=== PATIENT | male | born 1965 | race Caucasian/White ===

== ENCOUNTER 2016-05-29 13:45 | Inpatient (IN) | payer OTHER ==
[2016-05-29 17:09] VITALS: BMI 31.5
--- NOTE | 2016-05-29 17:09 | HP ---
COWS - Scale Resting Pulse: 0= [place] 80 or Below Sweatin= Chills/Flushing Restless Observation: 1= Difficult to Sit Still Pupil Size: 1= Pupils >than Normal Bone or Joint Aches: 2= Severe Diffuse Aches Runny Nose/ Eye Tearin= Runny Nose/Eyes GI Upset > 30mins: 3= Vomiting/Diarrhea Tremor Observation: 2= Slight Tremor Visible Yawning Observation: 1= 1-2x During Session Anxiety or Irritability: 2=Irritable/Anxious Goose Flesh Skin: 0=Smooth Skin COWS Score: 15 Admission ROS S - [facility] Chief Complaint: withdrawal sx Allergies/Adverse Reactions: Allergies Allergy/AdvReac Type Severity Reaction Status Date / Time No Known Allergies Allergy Unverified 05/29/16 18:02 History of Present Illness: 51 years old male with long history of opiate nicotine cocaine dependence has hypertension and depression is admitted to detox Exam Limitations: No Limitations - Ebola screening Have you traveled outside of the country in the last 21 days: No Have you had contact with anyone from an Ebola affected area: No Have you been sick,other than usual withdrawal symptoms: No Do you have a fever: No - Review of Systems Constitutional: Changes in sleep, Weight Stable EENT: reports: No Symptoms Reported Respiratory: reports: No Symptoms reported Cardiac: reports: No Symptoms Reported GI: reports: Diarrhea, Nausea, Poor Fluid Intake, Abdominal cramping : reports: No Symptoms Reported Musculoskeletal: reports: Back Pain, Joint Pain, Muscle Pain, Neck Pain Integumentary: reports: Change in Color (both inner elbows) Neuro: reports: Tremors Endocrine: reports: No Symptoms Reported Hematology: reports: No Symptoms Reported Psychiatric: reports: Judgement Intact, Orientated x3, Depressed Other Systems: Reviewed and Negative Patient History - Patient Medical History Hx Anemia: No Hx Asthma: No Hx Chronic Obstructive Pulmonary Disease (COPD): No Hx Cancer: No Hx Cardiac Disorders: No Hx Congestive Heart Failure: No Hx Hypertension: No Hx Hypercholesterolemia: No Hx Pacemaker: No HX Cerebrovascular Accident: No Hx Seizures: No Hx Dementia: No Hx Diabetes: No Hx Gastrointestinal Disorders: No Hx Liver Disease: No Hx Genitourinary Disorders: No Hx Sexually Transmitted Disorders: No Hx Renal Disease (ESRD): No Hx Thyroid Disease: No Hx Human Immunodeficiency Virus (HIV): No Hx Hepatitis C: Yes Hx Depression: Yes Hx Suicide Attempt: No Hx Bipolar Disorder: No Hx Schizophrenia: No - Patient Surgical History Past Surgical History: Yes Hx Neurologic Surgery: No Hx Cataract Extraction: No Hx Cardiac Surgery: Yes (2005 triple by pass) Hx Lung Surgery: No Hx Breast Surgery: No Hx Breast Biopsy: No Hx Abdominal Surgery: No Hx Appendectomy: No Hx Cholecystectomy: No Hx Genitourinary Surgery: No Hx Orthopedic Surgery: No Anesthesia Reaction: No - PPD History Previous Implant?: Yes Documented Results: Negative w/o proof Implanted On Prior [facility] Admission?: No PPD to be Administered?: Yes - Smoking Cessation Smoking history: Current every day smoker Have you smoked in the past 12 months: Yes Aproximately how many cigarettes per day: 30 Cigars Per Day: 0 Hx Chewing Tobacco Use: No Initiated information on smoking cessation: Yes 'Breaking Loose' booklet given: 05/29/16 - Substance & Tx. History Hx Alcohol Use: No Hx Substance Use: Yes Substance Use Type: Cocaine, Opiates Hx Substance Use Treatment: Yes - Substances Abused Heroin Route: Injection Frequency: Daily Amount used: 10 bags Age of first use: 50 Date of Last Use: 05/29/16 Cocaine Route: Smoking Frequency: Daily Amount used: $50.00 Age of first use: 50 Date of Last Use: 05/29/16 Family Disease History - Family Disease History Family Disease History: Diabetes: Grandparent, Heart Disease: Grandparent, Father () Admission Physical Exam [facility] - Physical General Appearance: Yes: Nourished, Appropriately Dressed, Moderate Distress, Tremorous, Irritable, Sweating, Anxious HEENTM: Yes: Hearing grossly Normal, Normal ENT Inspection, Normocephalic, Normal Voice Respiratory: Yes: Chest Non-Tender, Lungs Clear, Normal Breath Sounds, No Respiratory Distress, No Accessory Muscle Use Neck: Yes: Supple, Trachea in good position Breast: Yes: Breasts Symetrical Cardiology: Yes: Regular Rhythm, Regular Rate, S1, S2 Abdominal: Yes: Non Tender, Soft Genitourinary: Yes: Within Normal Limits Back: Yes: Normal Inspection Musculoskeletal: Yes: full range of Motion, Gait Steady Extremities: Yes: Normal Range of Motion, Non-Tender, Tremors Neurological: Yes: Fully Oriented, Alert, Motor Strength 5/5, Normal Response, Depressed Affect Integumentary: Yes: Warm, Track [place] Lymphatic: Yes: Within Normal Limits - Diagnostic (1) Opioid dependence with withdrawal Current Visit: Yes Status: Acute (2) Hypertension Current Visit: Yes Status: Acute Qualifiers: Hypertension type: essential hypertension Qualified Code(s): I10 - Essential (primary) hypertension (3) Diabetes mellitus type II, controlled Current Visit: Yes Status: Acute Qualifiers: Diabetes mellitus complication status: without complication Diabetes mellitus nursing home insulin use: without superintendent marine oil terminal use Qualified Code(s): E11.9 - Type 2 diabetes mellitus without complications (4) Nicotine dependence Current Visit: Yes Status: Acute Qualifiers: Nicotine product type: cigarettes Substance use status: in withdrawal Qualified Code(s): F17.213 - Nicotine dependence, cigarettes, with withdrawal (5) Hepatitis C antibody test positive Current Visit: Yes Status: Resolved Comment: treated (6) Depression (emotion) Current Visit: Yes Status: Suspected Qualifiers: Depression Type: dysthymia Qualified Code(s): F34.1 - Dysthymic disorder (7) Status post cardiac revascularization with bypass aortocoronary anastomosis of five coronary vessels Current Visit: Yes Status: Resolved Cleared for Admission BHS - Detox or Rehab S Level of Care: Medically Managed Detox Regimen/Protocol: Methadone BHS Breath Alcohol Content Breath Alcohol Content: 0 Vital Signs - Vital Signs Vital Signs Refused: No Temperature: 97.5 F Temperature Source: Oral Pulse Rate: 68 Respiratory Rate: 18 Blood Pressure: 138/75 BP Location: Left Arm Blood Pressure Position: Sitting - Height Height: 5 ft 10 in - Weight Weight: 220 lb Weight Measurement Method: Standing Scale Body Mass Index (BMI): 31.5 - Bowel Function Bowel Movement: Yes Urine Drug Screen - Control Is Test Valid: Yes - Results Drug Screen Negative: No Urine Drug Screen Results: CHIDI-Cocaine, OPI-Opiates
[2016-05-29] MEDS ORDERED: MAGNESIUM CITRATE 300 ML BOTTLE PO PRN (18:58)
[2016-05-29] MEDS ORDERED: LOPERAMIDE HCL 2 MG CAPSULE PO PRN (18:58)
[2016-05-29] MEDS ORDERED: NICOTINE POLACRILEX 4 MG GUM BC PRN (18:58)
[2016-05-29] MEDS ORDERED: MAG HYDROX/AL HYDROX/SIMETH 30 ML UNIT-DOSE CUP PO PRN (18:58)
[2016-05-29] MEDS ORDERED: MENTHOL/PHENOL 1 EACH UD MM PRN (18:58)
[2016-05-29] MEDS ORDERED: METHADONE HCL 10 MG TABLET (FOR DETOX USE ONLY) PO ONE ×2 (18:58→23:00)
[2016-05-29] MEDS ORDERED: MAGNESIUM HYDROX 2400MG/30ML ORAL SUSPENSION 30 ML CUP PO PRN (18:58)
[2016-05-29] MEDS ORDERED: IBUPROFEN 400 MG TABLET (FP) PO PRN (18:58)
[2016-05-29] MEDS ORDERED: P-EPHED 60MG/TRIPROLIDI 2.5MG TABLET PO PRN (18:58)
[2016-05-29] MEDS ORDERED: diphenhydrAMINE HCL 50 MG CAPSULE PO PRN (18:58)
[2016-05-29] MEDS ORDERED: ACETAMINOPHEN 325 MG TABLET (FP) PO PRN (18:58)
[2016-05-29] MEDS ORDERED: cloNIDine HCL 0.1 MG TABLET PO PRN (19:04)
[2016-05-29] MEDS: diazePAM 5 MG TABLET PO PRN (20:21)
[2016-05-29] MEDS: THIAMINE HCL 100 MG TABLET (FP) PO SCH (22:46)
[2016-05-29] MEDS: CYCLOBENZAPRINE HCL 10 MG TABLET (FP) PO PRN (22:49)
[2016-05-30] MEDS: diazePAM 5 MG TABLET PO PRN ×2 (05:42→22:14)
[2016-05-30] MEDS: metFORMIN HCL 500 MG TABLET (FP) PO SCH ×2 (07:18→17:29)
[2016-05-30] MEDS ORDERED: METHADONE HCL 10 MG TABLET (FOR DETOX USE ONLY) PO ONE (10:00)
[2016-05-30] MEDS: NICOTINE 21 MG/24 HOURS TOPICAL PATCH TD SCH (10:12)
[2016-05-30] MEDS: LISINOPRIL 20 MG TABLET (FP) PO SCH (10:12)
[2016-05-30] MEDS: HYDROCHLOROTHIAZIDE 25 MG TABLET (FP) PO SCH (10:12)
[2016-05-30] MEDS: PRENATAL VITAMINS W/ FOLIC ACID TABLET (FP) PO SCH (10:12)
[2016-05-30 11:30] LABS: MCH 28.8 pg (25.7-33.7); MCHC 33.7 g/dl (32.0-35.9); MEAN CELL VOLUME 85.4 fl (80-96); MEAN PLT VOLUME 7.6 fl (7.5-11.1); PLATELET COUNT 103 K/MM3 (134-434); RDW 14.5 % (11.9-15.9); WHITE BLOOD COUNT 3.8 K/mm3 (4.0-10.0)
[2016-05-30 11:39] LABS: ALBUMIN 3.5 g/dl (3.4-5.0); ALK PHOS 79 U/L (45-117); ANION GAP 9 (8-16); BILIRUBIN,TOTAL 0.6 mg/dL (0.2-1.0); CALCIUM 8.8 mg/dL (8.5-10.1); CO2 28 mmol/L (21-32); CREATININE 0.8 mg/dL (0.7-1.3); GLUCOSE,RANDOM 124 mg/dL (74-106); SGOT/AST 15 U/L (15-37); SGPT/ALT 20 U/L (12-78); TOT PROT 7.6 g/dl (6.4-8.2)
--- NOTE | 2016-05-30 11:56 | PN ---
BHS COWS - Scale Resting Pulse: 1= [place] 81-100 Sweatin=Flushed/Facial Moisture Restless Observation: 1= Difficult to Sit Still Pupil Size: 0= Normal to Room Light Bone or Joint Aches: 2= Severe Diffuse Aches Runny Nose/ Eye Tearin= Runny Nose/Eyes GI Upset > 30mins: 2= Nausea/Diarrhea Tremor Observation of Outstretched Hands: 2= Slight Tremor Visible Yawning Observation: 1= 1-2x During Session Anxiety or Irritability: 2=Irritable/Anxious Goose Flesh Skin: 0=Smooth Skin COWS Score: 15 BHS Progress Note (SOAP) Subjective: Anxiety,sweating,interrupted sleep,restless,body aches Objective: 05/30/16 11:55 Last Vital Signs Temp Pulse Resp BP Pulse Ox 97 F L 86 20 128/78 05/30/16 10:31 05/30/16 10:31 05/30/16 10:31 05/30/16 10:31 Laboratory Tests 05/29/16 05/30/16 05/30/16 18:04 05:41 08:00 WBC 3.8 L RBC 5.01 Hgb 14.4 Hct 42.8 MCV 85.4 MCHC 33.7 RDW 14.5 Plt Count 103 L MPV 7.6 Sodium Potassium Chloride Carbon Dioxide Anion Gap BUN Creatinine Creat Clearance w eGFR POC Glucometer 190 141 Random Glucose Calcium Total Bilirubin AST ALT Alkaline Phosphatase Total Protein Albumin 05/30/16 08:00 WBC RBC Hgb Hct MCV MCHC RDW Plt Count MPV Sodium 140 Potassium 4.1 Chloride 103 Carbon Dioxide 28 Anion Gap 9 BUN 9 Creatinine 0.8 Creat Clearance w eGFR > 60 POC Glucometer Random Glucose 124 H Calcium 8.8 Total Bilirubin 0.6 AST 15 ALT 20 Alkaline Phosphatase 79 Total Protein 7.6 Albumin 3.5 labs noted Assessment: 05/30/16 11:55 Withdrawal sx. Plan: Continue detox
--- NOTE | 2016-05-30 11:58 | CONSULT ---
[facility] Psychiatric Consult - Data Date of interview: 05/30/16 Admission source: [facility] Identifying data: Readmission to [facility] for this 51 y/o male seeking detox treatment [address] for opioid and cocaine dependence.Patient is single without children,domiciled and self-employed. Substance Abuse History: - Smoking Cessation. Smoking history: Current every day smoker. Have you smoked in the past 12 months: Yes. Aproximately how many cigarettes per day: 30. Cigars Per Day: 0. Hx Chewing Tobacco Use: No. Initiated information on smoking cessation: Yes. 'Breaking Loose' booklet given : 05/29/16. - Substance & Tx. History. Hx Alcohol Use: No. Hx Substance Use: Yes. Substance Use Type: Cocaine, Opiates. Hx Substance Use Treatment: Yes. - Substances Abused. Heroin. Route: Injection. Frequency: Daily. Amount used: 10 bags. Age of first use: 50. Date of Last Use: 05/29/16. Cocaine. Route: Smoking. Frequency: Daily. Amount used: $50.00. Age of first use: 50. Date of Last Use: 05/29/16. Confirmed by patient in this interview. Medical History: Hepatitis C and a history of triple bypass in 2005. Psychiatric History: Patient denies. Physical/Sexual Abuse/Trauma History: Patient denies. Additional Comment: Urine Drug Screen Results: CHIDI-Cocaine, OPI-Opiates.Noted. Mental Status Exam - Mental Status Exam Alert and Oriented to: Time, Place, Person Cognitive Function: Good Patient Appearance: Well Groomed Mood: Hopeful, Euthymic Affect: Normal Range Patient Behavior: Appropriate, Cooperative Speech Pattern: Clear Voice Loudness: Normal Thought Process: Goal Oriented Thought Disorder: Not Present Hallucinations: Denies Suicidal Ideation: Denies Homicidal Ideation: Denies Insight/Judgement: Fair Sleep: Poorly, Difficulty falling asleep Appetite: Good Muscle strength/Tone: Normal Gait/Station: Normal Psychiatric Findings - Problem List ([place] 1, 2,3) (1) Nicotine dependence Current Visit: Yes Status: Acute Qualifiers: Nicotine product type: cigarettes Substance use status: in withdrawal Qualified Code(s): F17.213 - Nicotine dependence, cigarettes, with withdrawal (2) Opioid dependence with withdrawal Current Visit: Yes Status: Acute (3) Cocaine dependence Current Visit: Yes Status: Acute (4) Diabetes mellitus type II, controlled Current Visit: Yes Status: Chronic Qualifiers: Diabetes mellitus complication status: without complication Diabetes mellitus terminal superintendent insulin use: without intermediate use Qualified Code(s): E11.9 - Type 2 diabetes mellitus without complications (5) Hypertension Current Visit: Yes Status: Chronic Qualifiers: Hypertension type: essential hypertension Qualified Code(s): I10 - Essential (primary) hypertension (6) Hepatitis C antibody test positive Current Visit: Yes Status: Resolved Comment: treated (7) Status post cardiac revascularization with bypass aortocoronary anastomosis of five coronary vessels Current Visit: Yes Status: Resolved - Initial Treatment Plan Initial Treatment Plan: Psychoeducation.Detoxification.Zolpidem 10 mg po hs prn.Patient made aware of parasomnias.He agrees with this plan.Observation.
[2016-05-30] MEDS: CYCLOBENZAPRINE HCL 10 MG TABLET (FP) PO PRN (17:30)
[2016-05-30] MEDS: THIAMINE HCL 100 MG TABLET (FP) PO SCH (22:12)
[2016-05-30] MEDS: ZOLPIDEM TARTRATE 5 MG TABLET PO PRN (22:12)
[2016-05-31 00:17] LABS: URINE APPEARANCE CLEAR; URINE BILIRUBIN NEGATIVE (NEGATIVE); URINE BLOOD NEGATIVE (NEGATIVE); URINE COLOR LTYELLOW; URINE GLUCOSE (UA) NEGATIVE (NEGATIVE); URINE KETONE NEGATIVE (NEGATIVE); URINE LEUK ESTERASE NEGATIVE (NEGATIVE); URINE NITRITE NEGATIVE (NEGATIVE); URINE PROTEIN NEGATIVE (NEGATIVE); URINE UROBILINOGEN 2.0 E.U/dl E.U./dl (0.2-1.0)
[2016-05-31] MEDS: diazePAM 5 MG TABLET PO PRN ×3 (05:25→22:33)
[2016-05-31] MEDS: metFORMIN HCL 500 MG TABLET (FP) PO SCH ×2 (06:04→17:30)
[2016-05-31] MEDS ORDERED: METHADONE HCL 5 MG TABLET (FOR DETOX USE ONLY) PO ONE (10:00)
[2016-05-31] MEDS: PRENATAL VITAMINS W/ FOLIC ACID TABLET (FP) PO SCH (10:08)
[2016-05-31] MEDS: LISINOPRIL 20 MG TABLET (FP) PO SCH (10:08)
[2016-05-31] MEDS: NICOTINE 21 MG/24 HOURS TOPICAL PATCH TD SCH (10:09)
[2016-05-31] MEDS: HYDROCHLOROTHIAZIDE 25 MG TABLET (FP) PO SCH (10:09)
--- NOTE | 2016-05-31 14:17 | PN ---
BHS COWS - Scale Resting Pulse: 0= [place] 80 or Below Sweatin= Chills/Flushing Restless Observation: 3= Extraneous Movement Pupil Size: 0= Normal to Room Light Bone or Joint Aches: 2= Severe Diffuse Aches Runny Nose/ Eye Tearin= Runny Nose/Eyes GI Upset > 30mins: 3= Vomiting/Diarrhea Tremor Observation of Outstretched Hands: 2= Slight Tremor Visible Yawning Observation: 0= None Anxiety or Irritability: 2=Irritable/Anxious Goose Flesh Skin: 0=Smooth Skin COWS Score: 15 BHS Progress Note (SOAP) Subjective: Dry heaves, stomach pain, body aches, diarrhea, sweating, tremor, interrupted sleep Objective: 05/31/16 14:15 Last Vital Signs Temp Pulse Resp BP Pulse Ox 97 F L 80 18 126/77 05/31/16 13:37 05/31/16 13:37 05/31/16 13:37 05/31/16 13:37 Laboratory Tests 05/29/16 05/30/16 05/30/16 18:04 05:41 08:00 WBC 3.8 L RBC 5.01 Hgb 14.4 Hct 42.8 MCV 85.4 MCHC 33.7 RDW 14.5 Plt Count 103 L MPV 7.6 Sodium Potassium Chloride Carbon Dioxide Anion Gap BUN Creatinine Creat Clearance w eGFR POC Glucometer 190 141 Random Glucose Calcium Total Bilirubin AST ALT Alkaline Phosphatase Total Protein Albumin Urine Color Urine Appearance Urine pH Ur Specific [place] Urine Protein Urine Glucose (UA) Urine Ketones Urine Blood Urine Nitrite Urine Bilirubin Urine Urobilinogen Ur Leukocyte Esterase RPR Titer 05/30/16 05/30/16 05/30/16 08:00 08:00 16:16 WBC RBC Hgb Hct MCV MCHC RDW Plt Count MPV Sodium 140 Potassium 4.1 Chloride 103 Carbon Dioxide 28 Anion Gap 9 BUN 9 Creatinine 0.8 Creat Clearance w eGFR > 60 POC Glucometer 156 Random Glucose 124 H Calcium 8.8 Total Bilirubin 0.6 AST 15 ALT 20 Alkaline Phosphatase 79 Total Protein 7.6 Albumin 3.5 Urine Color Urine Appearance Urine pH Ur Specific [place] Urine Protein Urine Glucose (UA) Urine Ketones Urine Blood Urine Nitrite Urine Bilirubin Urine Urobilinogen Ur Leukocyte Esterase RPR Titer Nonreactive 03/04/17 03/05/17 23:03 05:24 WBC RBC Hgb Hct MCV MCHC RDW Plt Count MPV Sodium Potassium Chloride Carbon Dioxide Anion Gap BUN Creatinine Creat Clearance w eGFR POC Glucometer 127 Random Glucose Calcium Total Bilirubin AST ALT Alkaline Phosphatase Total Protein Albumin Urine Color Ltyellow Urine Appearance Clear Urine pH 7.0 Ur Specific [place] 1.011 Urine Protein Negative Urine Glucose (UA) Negative Urine Ketones Negative Urine Blood Negative Urine Nitrite Negative Urine Bilirubin Negative Urine Urobilinogen 2.0 e.u/dl Ur Leukocyte Esterase Negative RPR Titer Labs noted Assessment: 05/31/16 14:16 Withdrawal symptoms Plan: Continue detox
[2016-05-31] MEDS: CYCLOBENZAPRINE HCL 10 MG TABLET (FP) PO PRN (20:07)
[2016-05-31] MEDS: ZOLPIDEM TARTRATE 5 MG TABLET PO PRN (22:33)
[2016-05-31] MEDS: THIAMINE HCL 100 MG TABLET (FP) PO SCH (22:33)
--- NOTE | 2016-05-31 22:52 | EKG ---
Test Reason : Blood Pressure : / mmHG Vent. Rate : 068 BPM Atrial Rate : 068 BPM P-R Int : 174 ms QRS Dur : 098 ms QT Int : 422 ms P-R-T Axes : 012 043 025 degrees QTc Int : 448 ms NORMAL SINUS RHYTHM NONSPECIFIC T WAVE ABNORMALITY INFEROLATERAL LEADS CANNOT RULE OUT INFERIOR INFARCT , AGE UNDETERMINED ABNORMAL ECG NO PREVIOUS ECGS AVAILABLE Confirmed by AMARJIT CALERO MD ([id number]) on 05/31/2016 10:52:24 PM Referred By: Theron Rogers Confirmed By:AMARJIT CALERO MD
[2016-06-01] MEDS: diazePAM 5 MG TABLET PO PRN ×3 (06:21→17:22)
[2016-06-01] MEDS: guaiFENesin/D-METHORPHAN HB 10 ML UNIT-DOSE CUPS PO PRN (06:22)
[2016-06-01] MEDS: metFORMIN HCL 500 MG TABLET (FP) PO SCH ×2 (06:33→17:20)
[2016-06-01] MEDS ORDERED: METHADONE HCL 5 MG TABLET (FOR DETOX USE ONLY) PO ONE (10:00)
[2016-06-01] MEDS: PRENATAL VITAMINS W/ FOLIC ACID TABLET (FP) PO SCH (10:08)
[2016-06-01] MEDS: NICOTINE 21 MG/24 HOURS TOPICAL PATCH TD SCH (10:08)
[2016-06-01] MEDS: LISINOPRIL 20 MG TABLET (FP) PO SCH (10:08)
[2016-06-01] MEDS: HYDROCHLOROTHIAZIDE 25 MG TABLET (FP) PO SCH (10:08)
--- NOTE | 2016-06-01 12:47 | PN ---
BHS Progress Note (SOAP) Subjective: Sweating,interrupted sleep,restless Objective: 06/01/16 12:46 Vital Signs - 8 hr 06/01/16 06/01/16 06:40 09:22 Temperature 95.9 F L 96.9 F L Pulse Rate 75 84 Respiratory 16 18 Rate Blood Pressure 117/68 126/86 Laboratory Last Values WBC 3.8 K/mm3 (4.0-10.0) L 05/30/16 08:00 RBC 5.01 M/mm3 (4.00-5.60) 05/30/16 08:00 Hgb 14.4 GM/dL (11.7-16.9) 05/30/16 08:00 Hct 42.8 % (35.4-49) 05/30/16 08:00 MCV 85.4 fl (80-96) 05/30/16 08:00 MCHC 33.7 g/dl (32.0-35.9) 05/30/16 08:00 RDW 14.5 % (11.9-15.9) 05/30/16 08:00 Plt Count 103 K/MM3 (134-434) L 05/30/16 08:00 MPV 7.6 fl (7.5-11.1) 05/30/16 08:00 Sodium 140 mmol/L (136-145) 05/30/16 08:00 Potassium 4.1 mmol/L (3.5-5.1) 05/30/16 08:00 Chloride 103 mmol/L (98-107) 05/30/16 08:00 Carbon Dioxide 28 mmol/L (21-32) 05/30/16 08:00 Anion Gap 9 (8-16) 05/30/16 08:00 BUN 9 mg/dL (7-18) 05/30/16 08:00 Creatinine 0.8 mg/dL (0.7-1.3) 05/30/16 08:00 Creat Clearance w eGFR > 60 (>60) 05/30/16 08:00 POC Glucometer 206 UNITS (()) 06/01/16 06:20 Random Glucose 124 mg/dL (74-106) H 05/30/16 08:00 Calcium 8.8 mg/dL (8.5-10.1) 05/30/16 08:00 Total Bilirubin 0.6 mg/dL (0.2-1.0) 05/30/16 08:00 AST 15 U/L (15-37) 05/30/16 08:00 ALT 20 U/L (12-78) 05/30/16 08:00 Alkaline Phosphatase 79 U/L (45-117) 05/30/16 08:00 Total Protein 7.6 g/dl (6.4-8.2) 05/30/16 08:00 Albumin 3.5 g/dl (3.4-5.0) 05/30/16 08:00 Urine Color Ltyellow 05/30/16 23:03 Urine Appearance Clear 05/30/16 23:03 Urine pH 7.0 (5.0-8.0) 05/30/16 23:03 Ur Specific [place] 1.011 (1.001-1.035) 05/30/16 23:03 Urine Protein Negative (NEGATIVE) 05/30/16 23:03 Urine Glucose (UA) Negative (NEGATIVE) 05/30/16 23:03 Urine Ketones Negative (NEGATIVE) 05/30/16 23:03 Urine Blood Negative (NEGATIVE) 05/30/16 23:03 Urine Nitrite Negative (NEGATIVE) 05/30/16 23:03 Urine Bilirubin Negative (NEGATIVE) 05/30/16 23:03 Urine Urobilinogen 2.0 e.u/dl E.U./dl (0.2-1.0) 05/30/16 23:03 Ur Leukocyte Esterase Negative (NEGATIVE) 05/30/16 23:03 RPR Titer Nonreactive (NONREACTIVE) 05/30/16 08:00 labs noted Assessment: 06/01/16 12:46 Withdrawal sx. Plan: Continue detox
[2016-06-01] MEDS: THIAMINE HCL 100 MG TABLET (FP) PO SCH (22:11)
[2016-06-01] MEDS: ZOLPIDEM TARTRATE 5 MG TABLET PO PRN (22:13)
[2016-06-02] MEDS: CYCLOBENZAPRINE HCL 10 MG TABLET (FP) PO PRN ×2 (05:35→17:15)
[2016-06-02] MEDS: metFORMIN HCL 500 MG TABLET (FP) PO SCH ×2 (07:17→17:14)
[2016-06-02] MEDS ORDERED: METHADONE HCL 10 MG TABLET (FOR DETOX USE ONLY) PO ONE (10:00)
[2016-06-02] MEDS: PRENATAL VITAMINS W/ FOLIC ACID TABLET (FP) PO SCH (10:07)
[2016-06-02] MEDS: LISINOPRIL 20 MG TABLET (FP) PO SCH (10:07)
[2016-06-02] MEDS: HYDROCHLOROTHIAZIDE 25 MG TABLET (FP) PO SCH (10:08)
[2016-06-02] MEDS: NICOTINE 21 MG/24 HOURS TOPICAL PATCH TD SCH (10:08)
--- NOTE | 2016-06-02 10:09 | PN ---
S Progress Note (SOAP) Subjective: Anxiety,tremors,sweating,interrupted sleep Objective: 06/02/16 10:07 Vital Signs - 8 hr 06/02/16 06/02/16 06/02/16 03:25 05:53 09:43 Temperature 96.7 F L 97.4 F L Pulse Rate 77 81 Respiratory 18 18 16 Rate Blood Pressure 121/74 116/80 Laboratory Last Values WBC 3.8 K/mm3 (4.0-10.0) L 05/30/16 08:00 RBC 5.01 M/mm3 (4.00-5.60) 05/30/16 08:00 Hgb 14.4 GM/dL (11.7-16.9) 05/30/16 08:00 Hct 42.8 % (35.4-49) 05/30/16 08:00 MCV 85.4 fl (80-96) 05/30/16 08:00 MCHC 33.7 g/dl (32.0-35.9) 05/30/16 08:00 RDW 14.5 % (11.9-15.9) 05/30/16 08:00 Plt Count 103 K/MM3 (134-434) L 05/30/16 08:00 MPV 7.6 fl (7.5-11.1) 05/30/16 08:00 Sodium 140 mmol/L (136-145) 05/30/16 08:00 Potassium 4.1 mmol/L (3.5-5.1) 05/30/16 08:00 Chloride 103 mmol/L (98-107) 05/30/16 08:00 Carbon Dioxide 28 mmol/L (21-32) 05/30/16 08:00 Anion Gap 9 (8-16) 05/30/16 08:00 BUN 9 mg/dL (7-18) 05/30/16 08:00 Creatinine 0.8 mg/dL (0.7-1.3) 05/30/16 08:00 Creat Clearance w eGFR > 60 (>60) 05/30/16 08:00 POC Glucometer 198 UNITS (()) 06/02/16 05:34 Random Glucose 124 mg/dL (74-106) H 05/30/16 08:00 Calcium 8.8 mg/dL (8.5-10.1) 05/30/16 08:00 Total Bilirubin 0.6 mg/dL (0.2-1.0) 05/30/16 08:00 AST 15 U/L (15-37) 05/30/16 08:00 ALT 20 U/L (12-78) 05/30/16 08:00 Alkaline Phosphatase 79 U/L (45-117) 05/30/16 08:00 Total Protein 7.6 g/dl (6.4-8.2) 05/30/16 08:00 Albumin 3.5 g/dl (3.4-5.0) 05/30/16 08:00 Urine Color Ltyellow 05/30/16 23:03 Urine Appearance Clear 05/30/16 23:03 Urine pH 7.0 (5.0-8.0) 05/30/16 23:03 Ur Specific [place] 1.011 (1.001-1.035) 05/30/16 23:03 Urine Protein Negative (NEGATIVE) 05/30/16 23:03 Urine Glucose (UA) Negative (NEGATIVE) 05/30/16 23:03 Urine Ketones Negative (NEGATIVE) 05/30/16 23:03 Urine Blood Negative (NEGATIVE) 05/30/16 23:03 Urine Nitrite Negative (NEGATIVE) 05/30/16 23:03 Urine Bilirubin Negative (NEGATIVE) 05/30/16 23:03 Urine Urobilinogen 2.0 e.u/dl E.U./dl (0.2-1.0) 05/30/16 23:03 Ur Leukocyte Esterase Negative (NEGATIVE) 05/30/16 23:03 RPR Titer Nonreactive (NONREACTIVE) 05/30/16 08:00 labs noted Assessment: 06/02/16 10:08 withdrawal sx. Plan: Continue detox
--- NOTE | 2016-06-02 11:08 | EKG ---
Test Reason : Blood Pressure : / mmHG Vent. Rate : 080 BPM Atrial Rate : 080 BPM P-R Int : 162 ms QRS Dur : 096 ms QT Int : 402 ms P-R-T Axes : 009 042 085 degrees QTc Int : 463 ms NORMAL SINUS RHYTHM POSSIBLE INFERIOR INFARCT (CITED ON OR BEFORE 29-MAY-2016) ABNORMAL ECG WHEN COMPARED WITH ECG OF 29-MAY-2016 20:31, T WAVE VARIATION Confirmed by REMIGIO ARGUETA, YADI ([id number]) on 06/02/2016 11:08:09 AM Referred By: Theron Rogers Confirmed By:YADI FLOOD MD
[2016-06-02] MEDS: guaiFENesin/D-METHORPHAN HB 10 ML UNIT-DOSE CUPS PO PRN (13:40)
[2016-06-02] MEDS: THIAMINE HCL 100 MG TABLET (FP) PO SCH (22:07)
[2016-06-02] MEDS: ZOLPIDEM TARTRATE 5 MG TABLET PO PRN (22:07)
[2016-06-03] MEDS ORDERED: METHADONE HCL 5 MG TABLET (FOR DETOX USE ONLY) PO ONE (06:00)
[2016-06-03 06:07] VITALS: BP 103/66; PULSE 79; TEMP 97.5
[2016-06-03] MEDS: metFORMIN HCL 500 MG TABLET (FP) PO SCH (07:17)
--- NOTE | 2016-06-03 16:09 | DS ---
[facility] Detox Discharge Summary Admission Date: 05/29/16 Discharge Date: 06/03/16 - History Present History: Cocaine Dependence, Opioid Dependence Pertinent Past History: Hep C HTN Type II DM - Physical Exam Results Vital Signs: Vital Signs Temperature 97.5 F L 06/03/16 06:07 Pulse Rate 79 06/03/16 06:07 Respiratory Rate 18 06/03/16 06:07 Blood Pressure 103/66 06/03/16 06:07 O2 Sat by Pulse Oximetry (%) Pertinent Admission Physical Exam Findings: Withdrawal sx. Laboratory Last Values WBC 3.8 K/mm3 (4.0-10.0) L 05/30/16 08:00 RBC 5.01 M/mm3 (4.00-5.60) 05/30/16 08:00 Hgb 14.4 GM/dL (11.7-16.9) 05/30/16 08:00 Hct 42.8 % (35.4-49) 05/30/16 08:00 MCV 85.4 fl (80-96) 05/30/16 08:00 MCHC 33.7 g/dl (32.0-35.9) 05/30/16 08:00 RDW 14.5 % (11.9-15.9) 05/30/16 08:00 Plt Count 103 K/MM3 (134-434) L 05/30/16 08:00 MPV 7.6 fl (7.5-11.1) 05/30/16 08:00 Sodium 140 mmol/L (136-145) 05/30/16 08:00 Potassium 4.1 mmol/L (3.5-5.1) 05/30/16 08:00 Chloride 103 mmol/L (98-107) 05/30/16 08:00 Carbon Dioxide 28 mmol/L (21-32) 05/30/16 08:00 Anion Gap 9 (8-16) 05/30/16 08:00 BUN 9 mg/dL (7-18) 05/30/16 08:00 Creatinine 0.8 mg/dL (0.7-1.3) 05/30/16 08:00 Creat Clearance w eGFR > 60 (>60) 05/30/16 08:00 POC Glucometer 232 UNITS (()) 06/02/16 16:14 Random Glucose 124 mg/dL (74-106) H 05/30/16 08:00 Calcium 8.8 mg/dL (8.5-10.1) 05/30/16 08:00 Total Bilirubin 0.6 mg/dL (0.2-1.0) 05/30/16 08:00 AST 15 U/L (15-37) 05/30/16 08:00 ALT 20 U/L (12-78) 05/30/16 08:00 Alkaline Phosphatase 79 U/L (45-117) 05/30/16 08:00 Total Protein 7.6 g/dl (6.4-8.2) 05/30/16 08:00 Albumin 3.5 g/dl (3.4-5.0) 05/30/16 08:00 Urine Color Ltyellow 05/30/16 23:03 Urine Appearance Clear 05/30/16 23:03 Urine pH 7.0 (5.0-8.0) 05/30/16 23:03 Ur Specific [place] 1.011 (1.001-1.035) 05/30/16 23:03 Urine Protein Negative (NEGATIVE) 05/30/16 23:03 Urine Glucose (UA) Negative (NEGATIVE) 05/30/16 23:03 Urine Ketones Negative (NEGATIVE) 05/30/16 23:03 Urine Blood Negative (NEGATIVE) 05/30/16 23:03 Urine Nitrite Negative (NEGATIVE) 05/30/16 23:03 Urine Bilirubin Negative (NEGATIVE) 05/30/16 23:03 Urine Urobilinogen 2.0 e.u/dl E.U./dl (0.2-1.0) 05/30/16 23:03 Ur Leukocyte Esterase Negative (NEGATIVE) 05/30/16 23:03 RPR Titer Nonreactive (NONREACTIVE) 05/30/16 08:00 labs noted - Treatment Hospital Course: Detox Protocol Followed, Detoxed Safely, Responded well, Discharged Condition Good, Rehab Referral Accepted Patient has Accepted a Rehab Referral to: [facility] - Medication Discharge Medications: Ambulatory Orders Hydrochlorothiazide [Hctz -] 25 mg PO DAILY 05/29/16 Lisinopril [Prinivil] 20 mg PO DAILY 05/29/16 Metformin HCl [Glucophage -] 500 mg PO DAILY #30 tablet 06/03/16 - Diagnosis (1) Cocaine dependence Status: Acute Qualifiers: Substance use status: uncomplicated Qualified Code(s): F14.20 - Cocaine dependence, uncomplicated (2) Nicotine dependence Status: Acute Qualifiers: Nicotine product type: cigarettes Substance use status: in withdrawal Qualified Code(s): F17.213 - Nicotine dependence, cigarettes, with withdrawal (3) Opioid dependence with withdrawal Status: Acute (4) Diabetes mellitus type II, controlled Status: Chronic Qualifiers: Diabetes mellitus complication status: without complication Diabetes mellitus rat exterminator insulin use: without alf use Qualified Code(s): E11.9 - Type 2 diabetes mellitus without complications (5) Hypertension Status: Chronic Qualifiers: Hypertension type: essential hypertension Qualified Code(s): I10 - Essential (primary) hypertension - AMA Did Patient Leave Against Medical Advice: No
== END 2016-06-03 09:21 | disposition home or self-care (01) | DRG 773 ==
LOC: YASAS 13:45 → Y3N 19:20
PROVIDERS: ADMIT Internal Medicine; ATTEND Internal Medicine
PROC: HZ2ZZZZ Detoxification Services for Substance Abuse Treatment (ICD-10-PCS; principal; 2016-06-03)
DX: F11.23 Opioid dependence with withdrawal (principal); F14.20 Cocaine dependence, uncomplicated; F17.210 Nicotine dependence, cigarettes, uncomplicated; F34.1 Dysthymic disorder; I10 Essential (primary) hypertension; E11.9 Type 2 diabetes mellitus without complications; Z79.84 Long term (current) use of oral hypoglycemic drugs; B18.2 Chronic viral hepatitis C; Z95.1 Presence of aortocoronary bypass graft
CPT/HCPCS: 36415; 80053; 81003; 85027; 86593; 93005; 93010

== ENCOUNTER 2016-09-15 19:13 | Inpatient (IN) | payer OTHER ==
[2016-09-15 19:40] VITALS: BMI 33.0
--- NOTE | 2016-09-15 20:40 | HP ---
COWS - Scale Resting Pulse: 0= [place] 80 or Below Sweatin= Chills/Flushing Restless Observation: 1= Difficult to Sit Still Pupil Size: 1= Pupils >than Normal Bone or Joint Aches: 2= Severe Diffuse Aches Runny Nose/ Eye Tearin= Runny Nose/Eyes GI Upset > 30mins: 2= Nausea/Diarrhea Tremor Observation: 1= Tremor [place], Not Seen Yawning Observation: 1= 1-2x During Session Anxiety or Irritability: 1=Feels Anxious/Irritable Goose Flesh Skin: 3=Piloerection COWS Score: 15 Admission ROS [facility] - [facility] Chief Complaint: WITHDRAWAL SYMPTOMS Allergies/Adverse Reactions: Allergies Allergy/AdvReac Type Severity Reaction Status Date / Time No Known Allergies Allergy Unverified 05/29/16 18:02 History of Present Illness: 51 Y.O. MAN WITH AN EXTENSIVE HISTORY OF HEROIN AND COCAINE DEPENDENCE IS HERE FOR DETOX. HE WAS LAST HERE IN 05/2016. HAS A 20 YEAR HISTORY OF BEING CLEAN AND REPORTS RELAPSING ONE YEAR AGO. Exam Limitations: No Limitations - Ebola screening Have you traveled outside of the country in the last 21 days: No Have you had contact with anyone from an Ebola affected area: No Have you been sick,other than usual withdrawal symptoms: No Do you have a fever: No - Review of Systems Constitutional: Night Sweats, Weight Stable EENT: reports: Blurred Vision, Nose Congestion Respiratory: reports: No Symptoms reported Cardiac: reports: No Symptoms Reported GI: reports: Constipated : reports: No Symptoms Reported Musculoskeletal: reports: Back Pain, Other (RIGHT KNEE) Integumentary: reports: No Symptoms Reported Neuro: reports: No Symptoms reported Endocrine: reports: No Symptoms Reported Hematology: reports: No Symptoms Reported Psychiatric: reports: Orientated x3 Other Systems: Reviewed and Negative Patient History - Patient Medical History Hx Anemia: No Hx Asthma: No Hx Chronic Obstructive Pulmonary Disease (COPD): No Hx Cancer: No Hx Cardiac Disorders: No Hx Congestive Heart Failure: No Hx Hypertension: Yes (ON MEDS ) Hx Hypercholesterolemia: No Hx Pacemaker: No HX Cerebrovascular Accident: No Hx Seizures: No Hx Dementia: No Hx Diabetes: Yes (TYPE II) Hx Gastrointestinal Disorders: No Hx Liver Disease: No Hx Genitourinary Disorders: No Hx Sexually Transmitted Disorders: No Hx Renal Disease (ESRD): No Hx Thyroid Disease: No Hx Human Immunodeficiency Virus (HIV): No Hx Hepatitis C: Yes (TREATED-2015) Hx Depression: Yes Hx Suicide Attempt: No Hx Bipolar Disorder: No Hx Schizophrenia: No - Patient Surgical History Past Surgical History: Yes Hx Neurologic Surgery: No Hx Cataract Extraction: No Hx Cardiac Surgery: Yes (2005 triple by pass) Hx Lung Surgery: No Hx Breast Surgery: No Hx Breast Biopsy: No Hx Abdominal Surgery: No Hx Appendectomy: No Hx Cholecystectomy: No Hx Genitourinary Surgery: No Hx Orthopedic Surgery: No Other Surgical History: Tonsillectomy Anesthesia Reaction: No - PPD History Previous Implant?: Yes Documented Results: Negative w/o proof Implanted On Prior [facility] Admission?: Yes Date: 05/31/16 Results: 0 PPD to be Administered?: No - Reproductive History Patient is a Female of Child Bearing Age (11 -55 yrs old): No - Smoking Cessation Smoking history: Current every day smoker Have you smoked in the past 12 months: Yes Aproximately how many cigarettes per day: 30 Cigars Per Day: 0 Hx Chewing Tobacco Use: No Initiated information on smoking cessation: Yes 'Breaking Loose' booklet given: 09/15/16 - Substance & Tx. History Hx Alcohol Use: No Hx Substance Use: Yes Substance Use Type: Heroin Hx Substance Use Treatment: Yes (Last detox at [facility] 05/2016; last rehab at [facility] 06/2016) - Substances Abused Heroin Route: Injection Frequency: Daily Amount used: 6-10 bags Age of first use: 17 Date of Last Use: 09/15/16 Family Disease History - Family Disease History Family Disease History: Diabetes: Grandparent, Heart Disease: Grandparent, Father () Admission Physical Exam [facility] - Vital Signs Vital Signs: Vital Signs - 24 hr 09/15/16 19:34 Temperature 98.6 F Pulse Rate 72 Respiratory 20 Rate Blood Pressure 164/83 - Physical General Appearance: Yes: No Apparent Distress, Nourished HEENTM: Yes: Hearing grossly Normal, Normocephalic, Normal Voice Respiratory: Yes: Lungs Clear, Normal Breath Sounds, No Respiratory Distress, No Accessory Muscle Use Neck: Yes: No masses,lesions,Nodules, Trachea in good position Breast: Yes: Breast Exam Deferred Cardiology: Yes: Regular Rhythm, Regular Rate Abdominal: Yes: Non Tender, Flat, Soft Genitourinary: Yes: Other (N) Back: Yes: Normal Inspection Musculoskeletal: Yes: Back pain, Joint Stiffness, Joint swelling Extremities: Yes: Normal Inspection, Normal Range of Motion, Non-Tender Neurological: Yes: warpman II-XII NML intact, Fully Oriented, Alert, Motor Strength 5/5, Normal Mood/Affect, Normal Response Integumentary: Yes: Normal Color, Dry, Warm, Track [place] Lymphatic: Yes: Within Normal Limits - Diagnostic (1) Cocaine dependence Current Visit: Yes Status: Chronic Qualifiers: Substance use status: uncomplicated Qualified Code(s): F14.20 - Cocaine dependence, uncomplicated (2) Nicotine dependence Current Visit: Yes Status: Chronic Qualifiers: Nicotine product type: cigarettes Substance use status: in withdrawal Qualified Code(s): F17.213 - Nicotine dependence, cigarettes, with withdrawal (3) Opioid dependence with withdrawal Current Visit: Yes Status: Chronic (4) Diabetes mellitus type II, controlled Current Visit: Yes Status: Chronic Qualifiers: Diabetes mellitus complication status: without complication Diabetes mellitus terminal press operator insulin use: without terminal press operator use Qualified Code(s): E11.9 - Type 2 diabetes mellitus without complications (5) Hypertension Current Visit: Yes Status: Chronic Qualifiers: Hypertension type: essential hypertension Qualified Code(s): I10 - Essential (primary) hypertension Cleared for Admission S - Detox or Rehab [facility] Level of Care: Medically Managed Detox Regimen/Protocol: Methadone [facility] Breath Alcohol Content Breath Alcohol Content: 0 Urine Drug Screen - Results Drug Screen Negative: No Urine Drug Screen Results: CHIDI-Cocaine, OPI-Opiates
[2016-09-15] MEDS ORDERED: MAGNESIUM HYDROX 2400MG/30ML ORAL SUSPENSION 30 ML CUP PO PRN (20:55)
[2016-09-15] MEDS ORDERED: MENTHOL/PHENOL 1 EACH UD MM PRN (20:55)
[2016-09-15] MEDS ORDERED: guaiFENesin/D-METHORPHAN HB 10 ML UNIT-DOSE CUPS PO PRN (20:55)
[2016-09-15] MEDS ORDERED: ACETAMINOPHEN 325 MG TABLET (FP) PO PRN (20:55)
[2016-09-15] MEDS ORDERED: P-EPHED 60MG/TRIPROLIDI 2.5MG TABLET PO PRN (20:55)
[2016-09-15] MEDS ORDERED: METHADONE HCL 10 MG TABLET (FOR DETOX USE ONLY) PO ONE ×2 (20:55→23:00)
[2016-09-15] MEDS ORDERED: LOPERAMIDE HCL 2 MG CAPSULE PO PRN (20:55)
[2016-09-15] MEDS ORDERED: MAG HYDROX/AL HYDROX/SIMETH 30 ML UNIT-DOSE CUP PO PRN (20:55)
[2016-09-15] MEDS ORDERED: NICOTINE POLACRILEX 2 MG GUM BUC PRN (20:55)
[2016-09-15] MEDS ORDERED: MAGNESIUM CITRATE 300 ML BOTTLE PO PRN (20:55)
[2016-09-15] MEDS ORDERED: hydrOXYzine PAMOATE 50 MG CAPSULE (FP) PO PRN (20:55)
[2016-09-15] MEDS ORDERED: LIDOCAINE HCL 5% TOP OINTMENT 50 GM TUBE TP PRN (20:58)
[2016-09-15] MEDS ORDERED: METHADONE HCL 10 MG TABLET (FOR DETOX USE ONLY) ONE (23:12)
[2016-09-15] MEDS: THIAMINE HCL 100 MG TABLET (FP) PO SCH (23:15)
[2016-09-15] MEDS: diazePAM 5 MG TABLET PO PRN (23:16)
[2016-09-15] MEDS: LISINOPRIL 20 MG TABLET (FP) PO SCH (23:27)
[2016-09-16] MEDS: metFORMIN HCL 500 MG TABLET (FP) PO SCH (07:23)
[2016-09-16 09:48] LABS: MCH 29.7 pg (25.7-33.7); MCHC 34.4 g/dl (32.0-35.9); MEAN CELL VOLUME 86.2 fl (80-96); MEAN PLT VOLUME 7.7 fl (7.5-11.1); PLATELET COUNT 95 K/MM3 (134-434); RDW 13.9 % (11.9-15.9); WHITE BLOOD COUNT 3.2 K/mm3 (4.0-10.0)
[2016-09-16] MEDS ORDERED: METHADONE HCL 10 MG TABLET (FOR DETOX USE ONLY) PO ONE (10:00)
[2016-09-16 10:09] LABS: ALBUMIN 3.1 g/dl (3.4-5.0); ANION GAP 6 (8-16); BILIRUBIN,TOTAL 0.4 mg/dL (0.2-1.0); CALCIUM 8.3 mg/dL (8.5-10.1); CO2 30 mmol/L (21-32); CREATININE 0.8 mg/dL (0.7-1.3); GLUCOSE,RANDOM 188 mg/dL (74-106); SGOT/AST 20 U/L (15-37); SGPT/ALT 23 U/L (12-78); TOT PROT 6.9 g/dl (6.4-8.2)
[2016-09-16 10:10] LABS: ALK PHOS 104 U/L (45-117)
[2016-09-16] MEDS: PRENATAL VITAMINS W/ FOLIC ACID TABLET (FP) PO SCH (10:18)
[2016-09-16] MEDS: HYDROCHLOROTHIAZIDE 25 MG TABLET (FP) PO SCH (10:18)
[2016-09-16] MEDS: diazePAM 5 MG TABLET PO PRN ×2 (10:19→22:43)
[2016-09-16] MEDS: ASPIRIN COATED 81 MG TABLET.EC PO SCH (10:19)
[2016-09-16] MEDS: NICOTINE 21 MG/24 HOURS TOPICAL PATCH TD SCH (10:19)
[2016-09-16] MEDS: LISINOPRIL 20 MG TABLET (FP) PO SCH (10:20)
--- NOTE | 2016-09-16 11:05 | EKG ---
Test Reason : Blood Pressure : / mmHG Vent. Rate : 072 BPM Atrial Rate : 072 BPM P-R Int : 176 ms QRS Dur : 102 ms QT Int : 438 ms P-R-T Axes : 016 045 044 degrees QTc Int : 479 ms NORMAL SINUS RHYTHM POSSIBLE INFERIOR INFARCT (CITED ON OR BEFORE 29-MAY-2016) ABNORMAL ECG WHEN COMPARED WITH ECG OF 01-JUN-2016 10:35, NONSPECIFIC T WAVE ABNORMALITY NOW EVIDENT IN INFERIOR LEADS Confirmed by WILBERTO WHITTINGTON MD ([id number]) on 09/16/2016 11:05:28 AM Referred By: Theron Rogers Confirmed By:WILBERTO WHITTINGTON MD
--- NOTE | 2016-09-16 12:23 | PN ---
BHS COWS - Scale Resting Pulse: 0= [place] 80 or Below Sweatin=Flushed/Facial Moisture Restless Observation: 1= Difficult to Sit Still Pupil Size: 0= Normal to Room Light Bone or Joint Aches: 2= Severe Diffuse Aches Runny Nose/ Eye Tearin= Runny Nose/Eyes GI Upset > 30mins: 1= Stomach Cramp Tremor Observation of Outstretched Hands: 2= Slight Tremor Visible Yawning Observation: 2= >3x During Session Anxiety or Irritability: 2=Irritable/Anxious Goose Flesh Skin: 0=Smooth Skin COWS Score: 14 BHS Progress Note (SOAP) Subjective: Sweating, Interrupted sleep, Lower Back Ache. Objective: PT. A & O X 3, OBSERVED AMBULATING ON UNIT. NO ACUTE DISTRESS. PT. DENIES CHEST PAIN. 09/16/16 12:21 Vital Signs Temperature 97.0 F L 09/16/16 09:46 Pulse Rate 67 09/16/16 09:46 Respiratory Rate 18 09/16/16 09:46 Blood Pressure 138/78 09/16/16 09:46 O2 Sat by Pulse Oximetry (%) Laboratory Tests 09/15/16 09/16/16 09/16/16 22:08 06:08 07:00 WBC 3.2 L RBC 4.39 Hgb 13.0 Hct 37.8 MCV 86.2 MCHC 34.4 RDW 13.9 Plt Count 95 L MPV 7.7 Sodium Potassium Chloride Carbon Dioxide Anion Gap BUN Creatinine Creat Clearance w eGFR POC Glucometer 317 182 Random Glucose Calcium Total Bilirubin AST ALT Alkaline Phosphatase Total Protein Albumin RPR Titer 09/16/16 09/16/16 07:00 07:00 WBC RBC Hgb Hct MCV MCHC RDW Plt Count MPV Sodium 140 Potassium 3.8 Chloride 104 Carbon Dioxide 30 Anion Gap 6 L BUN 11 D Creatinine 0.8 Creat Clearance w eGFR > 60 POC Glucometer Random Glucose 188 H D Calcium 8.3 L Total Bilirubin 0.4 D AST 20 D ALT 23 Alkaline Phosphatase 104 D Total Protein 6.9 Albumin 3.1 L RPR Titer Nonreactive LABS NOTED. Assessment: 09/16/16 12:22 WITHDRAWAL SYMPTOMS. Plan: CONTINUE DETOX.
[2016-09-16 13:06] LABS: URINE APPEARANCE CLEAR; URINE BILIRUBIN NEGATIVE (NEGATIVE); URINE COLOR YELLOW; URINE GLUCOSE (UA) 2+ (NEGATIVE); URINE KETONE NEGATIVE (NEGATIVE); URINE LEUK ESTERASE NEGATIVE (NEGATIVE); URINE NITRITE NEGATIVE (NEGATIVE); URINE PROTEIN NEGATIVE (NEGATIVE); URINE UROBILINOGEN 2.0 E.U/dl E.U./dl (0.2-1.0)
[2016-09-16 13:52] LABS: URINE BLOOD 1+ (NEGATIVE)
[2016-09-16 13:57] LABS: URINE MUCUS RARE; URINE RBC 2 /hpf (0-3); URINE WBC 1 /hpf (3-5)
[2016-09-16] MEDS: diphenhydrAMINE HCL 50 MG CAPSULE PO PRN (22:43)
[2016-09-16] MEDS: THIAMINE HCL 100 MG TABLET (FP) PO SCH (22:43)
[2016-09-17] MEDS: diazePAM 5 MG TABLET PO PRN ×2 (05:54→22:31)
[2016-09-17] MEDS: metFORMIN HCL 500 MG TABLET (FP) PO SCH (07:23)
[2016-09-17] MEDS ORDERED: METHADONE HCL 5 MG TABLET (FOR DETOX USE ONLY) PO ONE (10:00)
[2016-09-17] MEDS: ASPIRIN COATED 81 MG TABLET.EC PO SCH (10:26)
[2016-09-17] MEDS: LISINOPRIL 20 MG TABLET (FP) PO SCH (10:26)
[2016-09-17] MEDS: PRENATAL VITAMINS W/ FOLIC ACID TABLET (FP) PO SCH (10:26)
[2016-09-17] MEDS: HYDROCHLOROTHIAZIDE 25 MG TABLET (FP) PO SCH (10:26)
[2016-09-17] MEDS: NICOTINE 21 MG/24 HOURS TOPICAL PATCH TD SCH (10:27)
--- NOTE | 2016-09-17 13:59 | PN ---
BHS COWS - Scale Resting Pulse: 1= ID [id number] Sweatin= Chills/Flushing Restless Observation: 1= Difficult to Sit Still Pupil Size: 0= Normal to Room Light Bone or Joint Aches: 1= Mild Discomfort Runny Nose/ Eye Tearin= Runny Nose/Eyes GI Upset > 30mins: 1= Stomach Cramp Tremor Observation of Outstretched Hands: 2= Slight Tremor Visible Yawning Observation: 1= 1-2x During Session Anxiety or Irritability: 1=Feels Anxious/Irritable Goose Flesh Skin: 0=Smooth Skin COWS Score: 11 BHS Progress Note (SOAP) Subjective: Sweating, Tremors. Objective: PT. A & O X 3, PATIENT OBSERVED AMBULATING ON UNIT. NO ACUTE DISTRESS. PATIENT DENIES CHEST PAIN. 09/17/16 13:55 Vital Signs Temperature 99.2 F 09/17/16 09:55 Pulse Rate 82 09/17/16 09:55 Respiratory Rate 18 09/17/16 09:55 Blood Pressure 159/83 09/17/16 09:55 O2 Sat by Pulse Oximetry (%) Laboratory Tests 09/15/16 09/16/16 09/16/16 22:08 06:08 07:00 WBC 3.2 L RBC 4.39 Hgb 13.0 Hct 37.8 MCV 86.2 MCHC 34.4 RDW 13.9 Plt Count 95 L MPV 7.7 Sodium Potassium Chloride Carbon Dioxide Anion Gap BUN Creatinine Creat Clearance w eGFR POC Glucometer 317 182 Random Glucose Calcium Total Bilirubin AST ALT Alkaline Phosphatase Total Protein Albumin Urine Color Urine Appearance Urine pH Ur Specific [place] Urine Protein Urine Glucose (UA) Urine Ketones Urine Blood Urine Nitrite Urine Bilirubin Urine Urobilinogen Ur Leukocyte Esterase Urine RBC Urine WBC Urine Mucus RPR Titer 09/16/16 09/16/16 09/16/16 07:00 07:00 11:40 WBC RBC Hgb Hct MCV MCHC RDW Plt Count MPV Sodium 140 Potassium 3.8 Chloride 104 Carbon Dioxide 30 Anion Gap 6 L BUN 11 D Creatinine 0.8 Creat Clearance w eGFR > 60 POC Glucometer Random Glucose 188 H D Calcium 8.3 L Total Bilirubin 0.4 D AST 20 D ALT 23 Alkaline Phosphatase 104 D Total Protein 6.9 Albumin 3.1 L Urine Color Yellow Urine Appearance Clear Urine pH 6.0 Ur Specific [place] 1.015 Urine Protein Negative Urine Glucose (UA) 2+ H Urine Ketones Negative Urine Blood 1+ H Urine Nitrite Negative Urine Bilirubin Negative Urine Urobilinogen 2.0 e.u/dl Ur Leukocyte Esterase Negative Urine RBC 2 Urine WBC 1 Urine Mucus Rare RPR Titer Nonreactive 09/17/16 05:56 WBC RBC Hgb Hct MCV MCHC RDW Plt Count MPV Sodium Potassium Chloride Carbon Dioxide Anion Gap BUN Creatinine Creat Clearance w eGFR POC Glucometer 128 Random Glucose Calcium Total Bilirubin AST ALT Alkaline Phosphatase Total Protein Albumin Urine Color Urine Appearance Urine pH Ur Specific [place] Urine Protein Urine Glucose (UA) Urine Ketones Urine Blood Urine Nitrite Urine Bilirubin Urine Urobilinogen Ur Leukocyte Esterase Urine RBC Urine WBC Urine Mucus RPR Titer LABS NOTED. 09/17/16 14:00 09/17/16 14:00 Assessment: 09/17/16 13:56 WITHDRAWAL SYMPTOMS. Plan: CONTINUE DETOX. PATIENT REQUESTING TO BE DISCHARGED FROM DETOX 1 DAY PRIOR TO ORIGINAL PROJECTED DISCHARGE DATE DUE TO SCHEDULING CONFLICT. METHADONE DETOX PROTOCOL AMENDED SO THAT PATIENT WILL BE DISCHARGED ON 09/19/2016 RATHER THAN ON 2016.
[2016-09-17] MEDS: diphenhydrAMINE HCL 50 MG CAPSULE PO PRN (22:31)
[2016-09-17] MEDS: THIAMINE HCL 100 MG TABLET (FP) PO SCH (22:31)
[2016-09-18] MEDS: IBUPROFEN 400 MG TABLET (FP) PO PRN ×2 (05:57→13:40)
[2016-09-18] MEDS: diazePAM 5 MG TABLET PO PRN ×2 (05:57→20:44)
[2016-09-18] MEDS: metFORMIN HCL 500 MG TABLET (FP) PO SCH (07:32)
[2016-09-18] MEDS ORDERED: METHADONE HCL 10 MG TABLET (FOR DETOX USE ONLY) PO ONE (10:00)
[2016-09-18] MEDS ORDERED: METHADONE HCL 5 MG TABLET (FOR DETOX USE ONLY) PO ONE (10:00)
[2016-09-18] MEDS: HYDROCHLOROTHIAZIDE 25 MG TABLET (FP) PO SCH (10:31)
[2016-09-18] MEDS: ASPIRIN COATED 81 MG TABLET.EC PO SCH (10:31)
[2016-09-18] MEDS: NICOTINE 21 MG/24 HOURS TOPICAL PATCH TD SCH (10:31)
[2016-09-18] MEDS: PRENATAL VITAMINS W/ FOLIC ACID TABLET (FP) PO SCH (10:31)
[2016-09-18] MEDS: LISINOPRIL 20 MG TABLET (FP) PO SCH (10:31)
--- NOTE | 2016-09-18 12:59 | PN ---
BHS Progress Note (SOAP) Subjective: Sweating only Detox symptom reported by patient today. Objective: PT. A & O X 3, OBSERVED AMBULATING ON UNIT. NO ACUTE DISTRESS. PT. DENIES CHEST PAIN. 09/18/16 12:57 Vital Signs Temperature 98.3 F 09/18/16 09:53 Pulse Rate 76 09/18/16 09:53 Respiratory Rate 18 09/18/16 09:53 Blood Pressure 151/84 09/18/16 09:53 O2 Sat by Pulse Oximetry (%) Laboratory Tests 09/15/16 09/16/16 09/16/16 22:08 06:08 07:00 WBC 3.2 L RBC 4.39 Hgb 13.0 Hct 37.8 MCV 86.2 MCHC 34.4 RDW 13.9 Plt Count 95 L MPV 7.7 Sodium Potassium Chloride Carbon Dioxide Anion Gap BUN Creatinine Creat Clearance w eGFR POC Glucometer 317 182 Random Glucose Calcium Total Bilirubin AST ALT Alkaline Phosphatase Total Protein Albumin Urine Color Urine Appearance Urine pH Ur Specific [place] Urine Protein Urine Glucose (UA) Urine Ketones Urine Blood Urine Nitrite Urine Bilirubin Urine Urobilinogen Ur Leukocyte Esterase Urine RBC Urine WBC Urine Mucus RPR Titer 09/16/16 09/16/16 09/16/16 07:00 07:00 11:40 WBC RBC Hgb Hct MCV MCHC RDW Plt Count MPV Sodium 140 Potassium 3.8 Chloride 104 Carbon Dioxide 30 Anion Gap 6 L BUN 11 D Creatinine 0.8 Creat Clearance w eGFR > 60 POC Glucometer Random Glucose 188 H D Calcium 8.3 L Total Bilirubin 0.4 D AST 20 D ALT 23 Alkaline Phosphatase 104 D Total Protein 6.9 Albumin 3.1 L Urine Color Yellow Urine Appearance Clear Urine pH 6.0 Ur Specific [place] 1.015 Urine Protein Negative Urine Glucose (UA) 2+ H Urine Ketones Negative Urine Blood 1+ H Urine Nitrite Negative Urine Bilirubin Negative Urine Urobilinogen 2.0 e.u/dl Ur Leukocyte Esterase Negative Urine RBC 2 Urine WBC 1 Urine Mucus Rare RPR Titer Nonreactive 09/17/16 09/18/16 05:56 05:56 WBC RBC Hgb Hct MCV MCHC RDW Plt Count MPV Sodium Potassium Chloride Carbon Dioxide Anion Gap BUN Creatinine Creat Clearance w eGFR POC Glucometer 128 140 Random Glucose Calcium Total Bilirubin AST ALT Alkaline Phosphatase Total Protein Albumin Urine Color Urine Appearance Urine pH Ur Specific [place] Urine Protein Urine Glucose (UA) Urine Ketones Urine Blood Urine Nitrite Urine Bilirubin Urine Urobilinogen Ur Leukocyte Esterase Urine RBC Urine WBC Urine Mucus RPR Titer LABS NOTED. Assessment: 09/18/16 12:57 WITHDRAWAL SYMPTOMS. Plan: CONTINUE DETOX. ADVISED PATIENT TO FOLLOW-UP WITH [employer]INGER AFTER DISCHARGE FROM DETOX FOR GENERAL MEDICAL ASSESSMENT AND FOR FOLLOW-UP EVALUATION OF HTN.
[2016-09-18] MEDS: THIAMINE HCL 100 MG TABLET (FP) PO SCH (22:28)
[2016-09-19] MEDS: IBUPROFEN 400 MG TABLET (FP) PO PRN (05:31)
[2016-09-19] MEDS ORDERED: METHADONE HCL 5 MG TABLET (FOR DETOX USE ONLY) PO ONE (06:00)
[2016-09-19 06:18] VITALS: BP 146/82; PULSE 76; TEMP 99.1
[2016-09-19] MEDS: metFORMIN HCL 500 MG TABLET (FP) PO SCH (06:21)
[2016-09-19] MEDS: PRENATAL VITAMINS W/ FOLIC ACID TABLET (FP) PO SCH (09:01)
[2016-09-19] MEDS: LISINOPRIL 20 MG TABLET (FP) PO SCH (09:01)
[2016-09-19] MEDS: NICOTINE 21 MG/24 HOURS TOPICAL PATCH TD SCH (09:02)
[2016-09-19] MEDS: HYDROCHLOROTHIAZIDE 25 MG TABLET (FP) PO SCH (09:02)
[2016-09-19] MEDS: ASPIRIN COATED 81 MG TABLET.EC PO SCH (09:02)
[2016-09-19] MEDS ORDERED: METHADONE HCL 10 MG TABLET (FOR DETOX USE ONLY) PO ONE (10:00)
--- NOTE | 2016-09-19 14:13 | DS ---
[facility] Detox Discharge Summary Admission Date: 09/15/16 Discharge Date: 09/19/16 - History Present History: Cocaine Dependence, Opioid Dependence Additional Comments: PATIENT DISCHARGED IN STABLE CONDITION. PATIENT ADVISED TO FOLLOW-UP WITH [employer] CONSERVATION AIDE AFTER DISCHARGE FROM DETOX FOR GENERAL MEDICAL ASSESSMENT. Pertinent Past History: HTN, Type II DM, Depression, Hep C (Treated). - Physical Exam Results Vital Signs: Vital Signs Temperature 99.1 F 09/19/16 06:17 Pulse Rate 76 09/19/16 06:17 Respiratory Rate 18 09/19/16 06:17 Blood Pressure 146/82 09/19/16 06:17 O2 Sat by Pulse Oximetry (%) Pertinent Admission Physical Exam Findings: WITHDRAWAL SYMPTOMS. Laboratory Tests 09/15/16 09/16/16 09/16/16 22:08 06:08 07:00 WBC 3.2 L RBC 4.39 Hgb 13.0 Hct 37.8 MCV 86.2 MCHC 34.4 RDW 13.9 Plt Count 95 L MPV 7.7 Sodium Potassium Chloride Carbon Dioxide Anion Gap BUN Creatinine Creat Clearance w eGFR POC Glucometer 317 182 Random Glucose Calcium Total Bilirubin AST ALT Alkaline Phosphatase Total Protein Albumin Urine Color Urine Appearance Urine pH Ur Specific [place] Urine Protein Urine Glucose (UA) Urine Ketones Urine Blood Urine Nitrite Urine Bilirubin Urine Urobilinogen Ur Leukocyte Esterase Urine RBC Urine WBC Urine Mucus RPR Titer 09/16/16 09/16/16 09/16/16 07:00 07:00 11:40 WBC RBC Hgb Hct MCV MCHC RDW Plt Count MPV Sodium 140 Potassium 3.8 Chloride 104 Carbon Dioxide 30 Anion Gap 6 L BUN 11 D Creatinine 0.8 Creat Clearance w eGFR > 60 POC Glucometer Random Glucose 188 H D Calcium 8.3 L Total Bilirubin 0.4 D AST 20 D ALT 23 Alkaline Phosphatase 104 D Total Protein 6.9 Albumin 3.1 L Urine Color Yellow Urine Appearance Clear Urine pH 6.0 Ur Specific [place] 1.015 Urine Protein Negative Urine Glucose (UA) 2+ H Urine Ketones Negative Urine Blood 1+ H Urine Nitrite Negative Urine Bilirubin Negative Urine Urobilinogen 2.0 e.u/dl Ur Leukocyte Esterase Negative Urine RBC 2 Urine WBC 1 Urine Mucus Rare RPR Titer Nonreactive 09/17/16 09/18/16 09/19/16 05:56 05:56 05:29 WBC RBC Hgb Hct MCV MCHC RDW Plt Count MPV Sodium Potassium Chloride Carbon Dioxide Anion Gap BUN Creatinine Creat Clearance w eGFR POC Glucometer 128 140 149 Random Glucose Calcium Total Bilirubin AST ALT Alkaline Phosphatase Total Protein Albumin Urine Color Urine Appearance Urine pH Ur Specific [place] Urine Protein Urine Glucose (UA) Urine Ketones Urine Blood Urine Nitrite Urine Bilirubin Urine Urobilinogen Ur Leukocyte Esterase Urine RBC Urine WBC Urine Mucus RPR Titer LABS NOTED. - Treatment Hospital Course: Detox Protocol Followed, Detoxed Safely, Responded well, Discharged Condition Good Patient has Accepted a Rehab Referral to: PATIENT GOING HOME. WILL ATTEND [facility] OUTPATIENT TREATMENT PROGRAM. - Medication Discharge Medications: Ambulatory Orders Hydrochlorothiazide [Hctz -] 25 mg PO DAILY 05/29/16 Hydrochlorothiazide [Hctz -] 25 mg PO DAILY #30 cap 09/19/16 Lisinopril [Prinivil] 20 mg PO DAILY #30 mg 09/19/16 Metformin HCl [Glucophage -] 500 mg PO DAILY #30 tablet 09/19/16 - Diagnosis (1) Cocaine dependence Status: Acute Qualifiers: Substance use status: uncomplicated Qualified Code(s): F14.20 - Cocaine dependence, uncomplicated (2) Diabetes mellitus type II, controlled Status: Chronic Qualifiers: Diabetes mellitus complication status: without complication Diabetes mellitus product inspection supervisor insulin use: without product inspection supervisor use Qualified Code(s): E11.9 - Type 2 diabetes mellitus without complications (3) Hypertension Status: Chronic Qualifiers: Hypertension type: essential hypertension Qualified Code(s): I10 - Essential (primary) hypertension (4) Nicotine dependence Status: Chronic Qualifiers: Nicotine product type: cigarettes Substance use status: in withdrawal Qualified Code(s): F17.213 - Nicotine dependence, cigarettes, with withdrawal (5) Opioid dependence with withdrawal Status: Acute - AMA Did Patient Leave Against Medical Advice: No
[2016-09-20] MEDS ORDERED: METHADONE HCL 5 MG TABLET (FOR DETOX USE ONLY) PO ONE (06:00)
== END 2016-09-19 09:05 | disposition home or self-care (01) | DRG 773 ==
LOC: YASAS 19:13 → Y3N 21:59
PROVIDERS: ADMIT Internal Medicine; ATTEND Internal Medicine
PROC: HZ2ZZZZ Detoxification Services for Substance Abuse Treatment (ICD-10-PCS; principal; 2016-09-19)
DX: F11.23 Opioid dependence with withdrawal (principal); F14.20 Cocaine dependence, uncomplicated; F17.213 Nicotine dependence, cigarettes, with withdrawal; F32.9 Major depressive disorder, single episode, unspecified; E11.9 Type 2 diabetes mellitus without complications; Z79.84 Long term (current) use of oral hypoglycemic drugs
CPT/HCPCS: 36415; 80053; 81003; 81015; 85027; 86593; 93005; 93010